=== PATIENT | male | born 2000 | race Caucasian/White ===

== ENCOUNTER 2019-07-03 08:50 | Emergency (ER) | payer OTHER, SELFPAY ==
[2019-07-03 08:54] VITALS: BP 129/50; PULSE 87; RESP 16; TEMP 36.8; O2SAT 100; BMI 21.2
--- NOTE | 2019-07-03 08:58 | W.ED.WOUNDLC ---
HPI - Wound/Laceration General: Chief Complaint: Wound/Laceration Stated Complaint: RIGHT HAND LAC Time Seen by Provider: 07/03/19 08:55 History of Present Illness: HPI narrative: 19 yo male comes in with a cut on the hypothenar eminence of the left hand. No evidence of infection no drainage she states he is up-to-date on his [place] tetanus this occurred while he was hunting he was cut by the Jose [employer] of a turkey. Associated symptoms: Denies chills, fever(s), nausea or vomiting Review of Systems Const: Denies: fever, chills, body aches, change in appetite, fatigue or malaise ENMT: Denies: throat pain, ear pain, nasal discharge or nasal congestion Card: Denies: chest pain, edema, shortness of breath on exertion or shortness of breath when lying down Resp: Denies: shortness of breath, productive cough or non-productive cough GI: Denies: abdominal pain, nausea, vomiting, vomiting blood, coffee grounds in vomit, diarrhea, constipation, bloating, blood in stool or black tarry stool : Denies: flank pain, painful urination, urinary frequency or urinary urgency Skin/Breast: Reports: other (Lacerations); Denies: rash or itching PFSH ED PFSH: Social History Smoking and tobacco status: never smoked Physical Exam Const: COMMON NORMALS: no apparent distress GENERAL APPEARANCE: cooperative and comfortable ORIENTATION/CONSCIOUSNESS: Yes awake, Yes oriented to person, Yes oriented to place and Yes oriented to time HENMT: COMMON NORMALS: normocephalic, head/scalp atraumatic, hearing grossly normal bilaterally and external ears normal HEAD & SCALP: normocephalic and atraumatic EXTERNAL EAR: Yes external ears normal Eye: COMMON NORMALS: conjunctivae normal and no scleral icterus CONJUNCTIVA: Yes conjunctivae normal Resp: COMMON NORMALS: normal respiratory effort, no retractions, no use of accessory muscles and clear to auscultation bilaterally AUSCULTATION: clear to auscultation bilaterally Cardio: COMMON NORMALS: regular rate, regular rhythm and no murmurs RATE: regular rate RHYTHM: regular rhythm Extremity: COMMON NORMALS: normal capillary refill, no clubbing, cyanosis or edema, no calf tenderness and no pedal edema Neuro: SENSORIUM/ORIENTATION: Yes oriented to person, Yes oriented to place and Yes oriented to time Skin: COMMON NORMALS: no rashes or lesions noted NARRATIVE SKIN EXAM: 1 cm laceration on the hypothenar eminence of the left hand GENERAL SKIN EXAM: no rashes or lesions noted Procedures Laceration Laceration 1: Size (cm): 4 Course ED course: I seen patient initially but was called away to another patient. Maximo Abad nurse practitioner sutured the wound. See his notes. Vital Signs: Vital signs: Vital Signs Temperature 98.2 F 07/03/19 08:54 Pulse Rate 73 07/03/19 10:43 Respiratory Rate 16 07/03/19 10:43 Blood Pressure 129/50 07/03/19 08:54 Pulse Oximetry 98 07/03/19 10:43 MDM - Wound/Laceration MDM Narrative: Medical decision making narrative: Wound care instructions given sutures out in 7-10 days Discharge Plan Discharge Patient Disposition: Home, Self-Care Clinical Impression: Laceration Condition: Stable Prescriptions: New cephalexin 500 mg capsule 500 mg PO BID 7 Days Qty: 14 RF: 0 Discharge Orders: Discharge Order (Routine); Ordered 07/03/19 Ordered By: Carson Abad Discharge Diet: Usual diet Discharge Activity: Increase activity as tolerated Patient Instructions: Suture Care (ED) Activity Restrictions/Additional Instructions: Keep wound clean and dry. Activity as tolerated. Is important to keep wound dry for the next 48 hours. Keep wound covered if it is going to be soiled. Follow-up to have sutures out in 7 to 10 days. Return to the ER for significant pain, fever, redness with purulent drainage. Discharge Date/Time: 07/03/19 10:44 Coding Level of Care Code ED Paper Pattern Inspector for Madhuri Fwd Exam Comprehensive
[2019-07-03] MEDS: mupirocin oint 22 gm 1 APPLIC TOPICAL (10:40)
[2019-07-03 10:43] VITALS: PULSE 73; RESP 16; O2SAT 98
== END 2019-07-03 10:44 | disposition home or self-care (01) ==
PROVIDERS: Emergency Provider Family Medicine
DX: S61.412A Laceration without foreign body of left hand, initial encounter (principal); W26.8XXA Contact with other sharp object(s), not elsewhere classified, initial encounter
CPT/HCPCS: 12001; 12345; 99281; 99282; J2001

== ENCOUNTER 2019-07-08 20:10 | Emergency (ER) | payer OTHER, SELFPAY ==
[2019-07-08 20:19] VITALS: BP 134/78; PULSE 86; RESP 18; TEMP 36.7; O2SAT 100; BMI 21.2
--- NOTE | 2019-07-08 21:22 | W.ED.EYEPROB ---
HPI - Eye Problem General: Chief complaint: Eye Problems Stated complaint: fb in eye Time Seen by Provider: 07/08/19 20:50 History of Present Illness: HPI Narrative: Patient is a 19-year-old male who comes to the ED with right thigh pain. Patient says yesterday he was at work and he thinks some sawdust might of gotten into his right eye. He rinsed his eye out thoroughly after incident but could still feel an irritation. Patient went to sleep and woke up today and still felt like he had something right had some mild upper lid swelling in right eye. Denies any purulent drainage from eye or any vision change. Patient says his right eye has been watering today. Patient denies any contact lens use. Associated symptoms: Denies fever(s), headache(s), nausea, neck pain or vomiting Review of Systems Const: Denies: fever, chills or fatigue Eyes: Reports: eye discomfort (right eye) and eye redness (right eye); Denies: change in vision ENMT: Denies: throat pain, painful swallowing, nasal discharge or nasal congestion Card: Denies: chest pain, palpitations, edema, swelling of feet/ankles, shortness of breath on exertion or shortness of breath when lying down Resp: Denies: shortness of breath, productive cough or non-productive cough GI: Denies: abdominal pain, nausea, vomiting, diarrhea, constipation or blood in stool : Denies: flank pain, difficulty urinating, painful urination or blood in urine Musc: Denies: neck pain, back pain or extremity swelling Skin/Breast: Denies: rash or new lesion Neuro: Denies: headache, numbness in extremities or weakness in extremities PFS ED PFSH: Social History Smoking and tobacco status: never smoked Physical Exam Narrative: EXAM NARRATIVE: Patient is a 19-year-old male who is lying comfortably on the exam bed when I enter the room. He was able to open eye and was looking at his phone with no apparent discomfort. Upon physical exam his right upper eyelid had some mild swelling. After inspecting eye and using the slit-lamp no abrasions were seen and no foreign bodies noted. Const: COMMON NORMALS: oriented x3 HENMT: COMMON NORMALS: normocephalic HEAD & SCALP: normocephalic MOUTH: oral and palatal mucosa normal THROAT: posterior oropharynx normal and uvula midline Eye: COMMON NORMALS: PERRL and EOMs intact bilaterally PERIORBITAL: periorbital findings abnormal positive right (Upper lid has mild swelling swelling) EYELID: eyelid abnormal right upper eyelid erythema and swelling PUPIL: Yes PERRL DIRECT OPHTHALMOSCOPY: No photophobia SLIT LAMP EXAM: Yes slit lamp exam performed with fluorescein, Yes lids/lashes/lacrimal system Lids/lashes/lacrimal system details: lid swelling/edema (Mild right upper lid swelling.), Yes conjunctiva/sclera Conjunctiva/sclera details: normal appearing and Yes cornea Cornea details: normal appearing Neck/C-Spine: COMMON NORMALS: supple GENERAL: Yes normal visual inspection Resp: COMMON NORMALS: normal respiratory effort, no retractions, no use of accessory muscles and clear to auscultation bilaterally AUSCULTATION: clear to auscultation bilaterally Cardio: COMMON NORMALS: regular rate, regular rhythm, S1 normal heart sound, S2 normal heart sound, no gallops, no clicks, no murmurs and peripheral pulses 2+ throughout RATE: regular rate RHYTHM: regular rhythm HEART SOUNDS: S1 normal and S2 normal PERIPHERAL PULSES: pulses 2+ throughout GI: COMMON NORMALS: normal to inspection, nondistended, normoactive bowel sounds, soft to palpation, non-tender and no masses PALPATION: Yes soft : COMMON NORMALS: Yes no CVA tenderness BLADDER/KIDNEY EXAM: Yes no CVA tenderness Back/Pelvis: COMMON NORMALS: no CVA tenderness Extremity: COMMON NORMALS: normal to inspection Neuro: COMMON NORMALS: oriented x3 and moves all extremities Skin: GENERAL SKIN EXAM: dry skin Course Vital Signs: Vital signs: Vital Signs Temperature 98.1 F 07/08/19 20:19 Pulse Rate 74 07/08/19 22:11 Respiratory Rate 16 07/08/19 22:11 Blood Pressure 133/71 07/08/19 22:11 Pulse Oximetry 99 07/08/19 22:11 MDM - Eye Problem MDM Narrative: Medical decision making narrative: Patient is a 19-year-old male who comes to the ED with eye discomfort and possible foreign body in eye. Denies any vision changes. Physical exam showed some mild right upper eyelid swelling. No foreign body identified on exam. Fluorescein dye and slit lamp exam was performed and no abrasions were seen. Patient was given dose of erythromycin eye ointment while here in the ED. I also sent patient home with erythromycin eye ointment prescription. He was told to follow-up with his PCP in the next 3 to 5 days or return to the ED immediately if symptoms do not improve or get worse in the next 1 to 3 days. Patient understood and agreed with plan. Discharge Plan Discharge Patient Disposition: Home, Self-Care Clinical Impression: Eye discomfort Qualifiers: Laterality: right Qualified Code(s): H57.11 - Ocular pain, right eye Condition: Stable Prescriptions: New erythromycin 5 mg/gram (0.5 %) ointment 1 applic ophthalmic (eye) BID 5 Days Qty: 1 RF: 0 No Action cephalexin 500 mg capsule 500 mg PO BID 7 Days Qty: 14 RF: 0 Discharge Orders: Discharge Order (Routine); Ordered 07/08/19 Ordered By: Kuldeep Nunez Discharge Diet: Regular Discharge Activity: Resume usual activity Patient Instructions: Erythromycin (Into the eye), Eye Foreign Body (ED), Eye Pain (ED) Activity Restrictions/Additional Instructions: Follow-up with your PCP in 5 days for reevaluation. If symptoms worsen in the next 1 to 3 days return to the ED for reevaluation. Apply ointment on right eye as prescribed. Take ibuprofen or Tylenol for pain. Discharge Date/Time: 07/08/19 22:11 Coding Level of Care Code ED Electronic Equipment Repairmen for Madhuri Chery Exam Comprehensive
[2019-07-08] MEDS: fluorescein 1 mg Strip EYE-BOTH (21:45)
[2019-07-08] MEDS: eye irrigation 30 mL Btl EYE-BOTH (21:45)
[2019-07-08] MEDS: erythromycin Op Oint 1 gm 1 APPLIC EYE-RIGHT (22:08)
[2019-07-08 22:11] VITALS: BP 133/71; PULSE 74; RESP 16; O2SAT 99
== END 2019-07-08 22:11 | disposition home or self-care (01) ==
PROVIDERS: Emergency Provider Physician Assistant
DX: H57.11 Ocular pain, right eye (principal)
CPT/HCPCS: 12345; 99281; 99283

== ENCOUNTER 2020-09-07 02:48 | Emergency (ER) | payer OTHER, SELFPAY ==
[2020-09-07 02:53] VITALS: BP 116/72; PULSE 98; RESP 17; TEMP 36.6; O2SAT 99; BMI 19.9
--- NOTE | 2020-09-07 03:13 | XRR_ITS ---
PROCEDURE INFORMATION: Exam: XR Chest Exam date and time: 09/07/2020 3:13 AM Age: 20 years old Clinical indication: Dyspnea; Additional info: Cp TECHNIQUE: Imaging protocol: XR of the chest. Views: 1 view. COMPARISON: CT abdomen pelvis w con* [id number] 10/29/2017 11:07 AM FINDINGS: Lungs: Unremarkable. No consolidation. Pleural spaces: Unremarkable. No pleural effusion. No pneumothorax. Heart/Mediastinum: Unremarkable. No cardiomegaly. Bones/joints: Unremarkable. XR/XR chest 1V portable [id number] IMPRESSION: No acute findings.
--- NOTE | 2020-09-07 03:13 | ECG_ITS ---
[facility] Test Date: 2020-09-07 Pat Name: Devon Antunez Department: Room: Gender: Male Sample Taker Operator: : 2000 Requested By: Darnell Wallace Order Number: [id number] Nicole MD: Tracy Mancuso M.D. Measurements Intervals [place] Rate: 98 P: 79 [place]: 132 QRS: 87 QRSD: 88 T: 70 QT: 320 QTc: 410 Interpretive Statements SINUS RHYTHM POSSIBLE RIGHT VENTRICULAR CONDUCTION DELAY [RSR (QR) IN V1/V2] No previous ECG available for comparison Electronically Signed On 09-08-2020 7:04:18 CDT by Tracy Mancuso M.D. [id number] f
[2020-09-07] MEDS: morphine 4 mg/mL SDV 1 mL IVP ×2 (03:22→03:24)
[2020-09-07 03:23] LABS: Basophils % 0.4 %; Eosinophils # 0.3 10^3/uL (0.0-0.8); Eosinophils % 3.5 %; Hematocrit 43.3 % (42.0-52.0); Hemoglobin 13.7 g/dL (11.7-16.6); Lymphocytes # 0.3 10^3/uL (0.8-4.8); Lymphocytes % 4.1 %; Mean Corpuscular HGB Conc 31.6 g/dL (30.0-36.0); Mean Corpuscular Hemoglobin 26.2 pg (28.0-34.0); Mean Corpuscular Volume 82.8 fL (80-94); Mean Platelet Volume 9.6 fL (7.4-10.4); Monocytes # 0.9 10^3/uL (0.2-0.9); Monocytes % 11.2 %; Neutrophils # 6.61 10^3/uL (1.8-7.7); Neutrophils % 80.6 %; Nucleated Red Blood Cells % 0 %; Platelet Count 250 10^3/cmm (130-400); Red Blood Count 5.23 10^6/uL (4.1-5.3); Red Cell Distribution Width 13.6 % (12.1-15.1); White Blood Count 8.2 10^3/uL (4.0-10.0)
[2020-09-07] MEDS: ondansetron 2 mg/ML SDV 2 mL 4 MG IVP (03:23)
[2020-09-07 03:24] VITALS: RESP 18; O2SAT 97
[2020-09-07 03:39] LABS: D Dimer 0.58 ug/mIFEU (0-0.59)
[2020-09-07 03:44] VITALS: BP 96/46; PULSE 94; RESP 18; O2SAT 96
[2020-09-07 03:44] LABS: Troponin(5th) Baseline 6 ng/L (0-15)
[2020-09-07 03:47] LABS: Alanine Aminotransferase 13 U/L (0-41); Albumin Level 3.8 g/dL (3.5-5.2); Alkaline Phosphatase 79 IU/L (40-130); Aspartate Amino Transferase 15 U/L (0-40); Blood Urea Nitrogen 8 mg/dL (6-20); Calcium 8.7 mg/dL (8.5-10.5); Carbon Dioxide 25 mmol/L (22-29); Chloride 100 mmol/L (98-107); Glomerular Filtration Rate 120.9 mL/min (90-130); Glucose 106 mg/dL (65-115); Lipase 34 U/L (13-60); Osmolality Calculated 283 mOsm/kg (285-295); Sodium 137 mmol/L (136-145); Total Bilirubin 0.4 mg/dL (0.15-1.2); Total Protein 5.8 g/dL (6.6-8.7)
--- NOTE | 2020-09-07 03:58 | W.ED.SOB ---
HPI - SOB/Dyspnea General: Chief Complaint: Shortness of Breath/Dyspnea Stated Complaint: difficulty breathing Time Seen by Provider: 09/07/20 03:10 Source: patient Mode of arrival: ambulatory Limitations: no limitations History of Present Illness: HPI Narrative: 20-year-old male states that he woke up in the middle the night with right-sided chest pain along with some dyspnea and pain with inspirations. States pain is very sharp in nature and rates it a 7 out of 10. States he is also been having some abdominal pain but has been chronic in nature going on for months and is following his PCP and is supposed to see a GI physician. He denies any cough or fevers. Associated symptoms: Reports chest pain; Deny abdominal pain, fever(s), nausea or vomiting Review of Systems Const: Denies: fever(s), chills, body aches or change in appetite Eyes: Denies: blurry vision or eye discomfort ENMT: Denies: throat pain or dental pain Card: Reports: chest pain Resp: Reports: dyspnea GI: Denies: abdominal pain, nausea, vomiting or diarrhea : Denies: dysuria Musc: Denies: neck pain or back pain Skin/Breast: Denies: rash Neuro: Denies: headache(s) Psych: Denies: depression Jean-Paul/Lymph: Denies: easy bruising All/Imm: Denies: urticaria PFSH ED PFSH: Social History Smoking and tobacco status: never smoked Physical Exam Const: COMMON NORMALS: no acute distress, patient oriented x3 and healthy appearing HENMT: COMMON NORMALS: normocephalic and atraumatic HEAD & SCALP: normocephalic and atraumatic Eye: COMMON NORMALS: Equal, round and reactive pupils present and EOMs intact bilaterally PUPIL: Yes Equal, round and reactive pupils present Neck/C-Spine: COMMON NORMALS: full ROM and supple Chest: COMMONS NORMALS: normal inspection of the chest and normal palpation of entire chest wall Resp: COMMON NORMALS: normal respiratory effort, No retractions, No use of accessory muscles and clear to auscultation bilaterally AUSCULTATION: clear to auscultation bilaterally Cardio: COMMON NORMALS: regular rate, regular rhythm and No murmurs present (Cardio) RATE: regular rate RHYTHM: regular rhythm GI: COMMON NORMALS: Normal to inspection, nondistended, normoactive bowel sounds present, Soft to palpation, non-tender and no masses PALPATION: Yes Soft to palpation Extremity: COMMON NORMALS: normal to inspection and full ROM Neuro: COMMON NORMALS: patient oriented x3, moves all extremities and no focal motor deficits Psych: COMMON NORMALS: mental status grossly normal, Normal thought process present and cooperative THOUGHT PROCESS: Normal thought process present Skin: COMMON NORMALS: no rashes or lesions noted and no wounds GENERAL SKIN EXAM: no rashes or lesions noted Course Vital Signs: Vital signs: Vital Signs Temperature 97.9 F 09/07/20 02:53 Pulse Rate 94 09/07/20 03:44 Respiratory Rate 18 09/07/20 03:44 Blood Pressure 96/46 09/07/20 03:44 Pulse Oximetry 96 09/07/20 03:44 MDM - SOB/Dyspnea MDM Narrative: Medical decision making narrative: Patient presents here with dyspnea along with chest pain since resolved. He has chronic abdominal pain as well. His exam here at discharge is benign and blood work here is all normal. His troponin is negative D-dimer is negative. Patient is stable for discharge and is to follow-up with his PCP and return if worsening. Lab Data: Labs: Lab Results 09/07/20 09/07/20 09/07/20 Range/Units 03:20 03:20 03:20 WBC 8.2 (4.0-10.0) 10^3/ uL RBC 5.23 (4.1-5.3) 10^6/u L Hgb 13.7 (11.7-16.6) g/dL Hct 43.3 (42.0-52.0) % MCV 82.8 (80-94) fL MCH 26.2 L (28.0-34.0) pg MCHC 31.6 (30.0-36.0) g/dL RDW 13.6 (12.1-15.1) % Plt Count 250 (130-400) 10^3/c mm MPV 9.6 (7.4-10.4) fL Neut % (Auto) 80.6 % Lymph % (Auto) 4.1 % [place] % (Auto) 11.2 % Eos % (Auto) 3.5 % Baso % (Auto) 0.4 % Neut # (Auto) 6.61 (1.8-7.7) 10^3/u L Lymph # (Auto) 0.3 L (0.8-4.8) 10^3/u L [place] # (Auto) 0.9 (0.2-0.9) 10^3/u L Eos # (Auto) 0.3 (0.0-0.8) 10^3/u L Baso # (Auto) 0.0 (0.0-0.1) 10^3/u L Nucleated RBC % (a uto) 0 % Nucleated RBCs # 0.0 /100WBC D-Dimer 0.58 (0-0.59) ug/mIFE U Sodium 137 (136-145) mmol/L Potassium 4.0 (3.5-5.1) mmol/L Chloride 100 (98-107) mmol/L Carbon Dioxide 25 (22-29) mmol/L Anion Gap 16.0 (5-19) BUN 8 (6-20) mg/dL Creatinine 0.8 (0.7-1.2) mg/dL GFR Calculation 120.9 (90-130) mL/min Glucose 106 (65-115) mg/dL Calculated Osmolal ity 283 L (285-295) mOsm/k g Calcium 8.7 (8.5-10.5) mg/dL Total Bilirubin 0.4 (0.15-1.2) mg/dL AST 15 (0-40) U/L ALT 13 (0-41) U/L Alkaline Phosphata se 79 (40-130) IU/L Troponin T Baselin e (0-15) ng/L Total Protein 5.8 L (6.6-8.7) g/dL Albumin 3.8 (3.5-5.2) g/dL Globulin 2.0 (1.3-4.6) g/dL Lipase 34 (13-60) U/L 09/07/ Range/Units 03:20 WBC (4.0-10.0) 10^3/ uL RBC (4.1-5.3) 10^6/u L Hgb (11.7-16.6) g/dL Hct (42.0-52.0) % MCV (80-94) fL MCH (28.0-34.0) pg MCHC (30.0-36.0) g/dL RDW (12.1-15.1) % Plt Count (130-400) 10^3/c mm MPV (7.4-10.4) fL Neut % (Auto) % Lymph % (Auto) % [place] % (Auto) % Eos % (Auto) % Baso % (Auto) % Neut # (Auto) (1.8-7.7) 10^3/u L Lymph # (Auto) (0.8-4.8) 10^3/u L [place] # (Auto) (0.2-0.9) 10^3/u L Eos # (Auto) (0.0-0.8) 10^3/u L Baso # (Auto) (0.0-0.1) 10^3/u L Nucleated RBC % (a uto) % Nucleated RBCs # /100WBC D-Dimer (0-0.59) ug/mIFE U Sodium (136-145) mmol/L Potassium (3.5-5.1) mmol/L Chloride (98-107) mmol/L Carbon Dioxide (22-29) mmol/L Anion Gap (5-19) BUN (6-20) mg/dL Creatinine (0.7-1.2) mg/dL GFR Calculation (90-130) mL/min Glucose (65-115) mg/dL Calculated Osmolal ity (285-295) mOsm/k g Calcium (8.5-10.5) mg/dL Total Bilirubin (0.15-1.2) mg/dL AST (0-40) U/L ALT (0-41) U/L Alkaline Phosphata se (40-130) IU/L Troponin T Baselin e 6 (0-15) ng/L Total Protein (6.6-8.7) g/dL Albumin (3.5-5.2) g/dL Globulin (1.3-4.6) g/dL Lipase (13-60) U/L Imaging Data^: CXR: Attestation: I personally reviewed and interpreted this imaging study as follows: My impression: no acute abnormality EKG Data^: EKG 1: Attestation: I personally reviewed and interpreted this EKG as follows: EKG Interpretation Date: 09/07/20 EKG interpretation time: 03:23 Interpretation: nsr hr [address] or t wave abnormalities qrs 88 qtc Discharge Plan Discharge Patient Disposition: Home Clinical Impression: Chest pain Qualifiers: Chest pain type: unspecified Qualified Code(s): R07.9 - Chest pain, unspecified Condition: Stable Discharge Orders: Discharge ED (Routine); Ordered 09/07/20 Ordered By: Darnell Wallace Discharge Diet: Advance as tolerated Discharge Activity: Resume usual activity Patient Instructions: Chest Pain (ED) Coding Level of Care Code ED Forestry Instructor for Madhuri Chery
[2020-09-07 04:20] VITALS: BP 112/69; PULSE 97; RESP 18; O2SAT 93
== END 2020-09-07 04:20 | disposition home or self-care (01) ==
PROVIDERS: Emergency Provider Emergency Medicine
DX: R07.9 Chest pain, unspecified (principal)
CPT/HCPCS: 71045; 80053; 83690; 84484; 85025; 85378; 93005; 96374; 96375; 99284; J2270; J2405